=== PATIENT | male | born 1985 | race Caucasian/White ===

== ENCOUNTER 2022-02-23 21:49 | Emergency (ER) | payer MEDICAID ==
[~2022-02-23] VITALS: Ht 170.2 cm; Wt 59.0 kg
[2022-02-23 22:03] VITALS: BP 121/80
== END 2022-02-24 00:05 | disposition left against medical advice (07) ==
LOC: ER 21:49
DX: Z53.21 Procedure and treatment not carried out due to patient leaving prior to being seen by health care provider (principal)

== ENCOUNTER 2022-06-13 10:03 | Emergency (ER) | payer MEDICAID ==
[~2022-06-13] VITALS: Ht 172.7 cm; Wt 62.0 kg
[2022-06-13 10:10] VITALS: BP 100/66
[2022-06-13] MEDS ORDERED: KETOROLAC 60MG/2ML VIAL IM ONE (10:15)
== END 2022-06-13 14:37 | disposition home or self-care (01) ==
LOC: ER 10:32
DX: M79.661 Pain in right lower leg (principal); M25.571 Pain in right ankle and joints of right foot; Z91.81 History of falling; F15.10 Other stimulant abuse, uncomplicated; S82.831A Other fracture of upper and lower end of right fibula, initial encounter for closed fracture; Z71.51 Drug abuse counseling and surveillance of drug abuser; X58.XXXA Exposure to other specified factors, initial encounter; Y93.89 Activity, other specified; Y92.89 Other specified places as the place of occurrence of the external cause
CPT/HCPCS: 29505; 73562; 73590; 73610; 96372; 99284; J1885